=== PATIENT | male | born 1940 | race Caucasian/White ===

== ENCOUNTER → 2017-12-16 | Outpatient (CLI) | payer OTHER ==
[~2017-12-16] MED LIST: APIX2.5T PO; APIX5TAB PO; CARD120C4 PO; DILT30TA PO; HYDR-3288 PO; VITA1000 PO; VITA500T35 PO
== END ==
LOC: CPRE 11:32
PROVIDERS: ATTEND Orthopaedic Surgery Sports Medicine
DX: M17.12 Unilateral primary osteoarthritis, left knee (principal)

== ENCOUNTER 2017-12-26 06:42 | Observation (INO) | payer MEDICARE, OTHER ==
[~2017-12-26] VITALS: Ht 190.5 cm; Wt 93.3 kg
[~2017-12-26 06:42] MED LIST changes: -APIX2.5T PO; -CARD120C4 PO; -HYDR-3288 PO
[2017-12-26] MEDS ORDERED: APIX2.5T PO (06:57)
[2017-12-26] MEDS ORDERED: HYDR-3288 PO (06:57)
[2017-12-26] MEDS ORDERED: ACETAMINOPHEN/HYDROcodone 325 MG/7.5 MG TAB PO PRN ×2 (07:00)
[2017-12-26] MEDS ORDERED: BISACODYL 10 MG SUPP RECTAL PRN (07:00)
[2017-12-26] MEDS ORDERED: Post-op Orders (for Pharmacy) XX ONE (07:00)
[2017-12-26] MEDS ORDERED: MORPHINE SULFATE 4 MG/ML INJ IV PUSH PRN (07:00)
[2017-12-26] MEDS ORDERED: diphenhydrAMINE HCL 50 MG/ML VIAL IV PUSH PRN (07:00)
[2017-12-26] MEDS ORDERED: ONDANSETRON HCL 4 MG/2 ML VIAL IVP PRN (07:00)
[2017-12-26] MEDS ORDERED: CHLORHEXIDINE GLUCONATE 2 % 1 PACK (2 CLOTHS) TOPICAL PRN (07:15)
[2017-12-26] MEDS ORDERED: DEXAMETHASONE SOD PHOS 20 MG/5 ML VIAL IV SCH (07:15)
[2017-12-26] MEDS ORDERED: LACTATED RINGER'S 1000 ML IV PRN (07:15)
[2017-12-26] MEDS ORDERED: POVIDONE IODINE 7.5% SCRUB 118 ML BOTTLE TOPICAL SCH (07:15)
[2017-12-26] MEDS ORDERED: CHLORHEXIDINE GLUCONATE 4% SOLN 120 ML BTL TOPICAL SCH (07:15)
[2017-12-26] MEDS ORDERED: METOPROLOL TARTRATE 25 MG TAB PO PRN (07:15)
[2017-12-26] MEDS ORDERED: SODIUM CHLORID 0.9% 500 ML IV PRN (07:15)
[2017-12-26] MEDS ORDERED: VANCOMYCIN 1000 MG/NS 250 ML (for <70 kg) IV SCH ×2 (07:15)
[2017-12-26] MEDS ORDERED: POVIDONE IODINE 5% (ANTISEPSIS KIT) 4 APPLICATIONS EACH NARE PRN (07:15)
[2017-12-26] MEDS ORDERED: ceFAZolin 2 GM PREMIX 50 ML IV SCH (07:15)
[2017-12-26] MEDS ORDERED: CARD120C4 PO (07:58)
[2017-12-26] MEDS ORDERED: BUPIVACAINE LIPOSOME PF 1.3% 20 ML VIAL ONE (08:26)
[2017-12-26] MEDS ORDERED: MIDAZOLAM HCL 2 MG/2 ML VIAL ONE (08:28)
[2017-12-26] MEDS ORDERED: LIDOCAINE HCL 1% 20 ML VIAL ONE (08:55)
[2017-12-26] MEDS ORDERED: LIDOCAINE HCL 1% PF 30 ML VIAL ONE (08:56)
[2017-12-26] MEDS ORDERED: GENTAMICIN SULFATE 80 MG/2 ML VIAL ONE (08:59)
[2017-12-26] MEDS ORDERED: DILTIAZEM HCL 30 MG TAB PO SCH (09:00)
[2017-12-26] MEDS ORDERED: SODIUM CHLORIDE 0.9% IV SCH (10:00)
[2017-12-26] MEDS ORDERED: TRANEXAMIC ACID IV SCH (10:00)
[2017-12-26] MEDS ORDERED: TRANEXAMIC PERI-ARTICULAR 3,000 MG/NS 100 ML P-ARTICULR SCH ×2 (10:00)
[2017-12-26] MEDS: ROPIVACAINE PERI-ARTICULAR INJECTION. P-ARTICULR SCH ×10 (10:25→12:55)
[2017-12-26] MEDS ORDERED: ACETAMINOPHEN 1000 MG/100 ML 100 ML IV ONE (10:55)
[2017-12-26] MEDS ORDERED: LACTATED RINGER'S 1000 ML INJ 1,000 ML IV ONE (12:00)
[2017-12-26] MEDS ORDERED: GLYCOPYRROLATE 1 MG/5 ML SYRINGE IV PUSH ONE (12:00)
[2017-12-26] MEDS ORDERED: NEOSTIGMINE 5 MG/5 ML SYRINGE IV PUSH ONE (12:00)
[2017-12-26] MEDS ORDERED: LIDOCAINE HCL 1% PF 5 ML SYRINGE OTHER ONE (12:00)
[2017-12-26] MEDS ORDERED: ROCURONIUM INJ 50 MG/5 ML SYRINGE IV PUSH ONE (12:00)
[2017-12-26] MEDS ORDERED: KETOROLAC TROMETHAMINE 30 MG/ML (IVP) VIAL IV PUSH ONE (12:00)
[2017-12-26] MEDS ORDERED: DEXAMETHASONE SOD PHOS 4 MG/ML VIAL IV ONE (12:00)
[2017-12-26] MEDS ORDERED: ONDANSETRON HCL 4 MG/2 ML VIAL IV PUSH ONE (12:00)
[2017-12-26] MEDS ORDERED: PROPOFOL 200 MG/20 ML AMP IV ONE (12:00)
[2017-12-26] MEDS ORDERED: *MEPERIDINE 25 MG INJ VIAL PERIprocedural Use ONLY ONE (12:08)
--- NOTE | 2017-12-26 12:15 | MP ---
cc: BUNNY NAM M.D. DATE OF SURGERY 12/26/2017 PREOPERATIVE DIAGNOSIS Left knee osteoarthritis. POSTOPERATIVE DIAGNOSIS Left knee osteoarthritis. PROCEDURE Left total knee arthroplasty. SURGEON Dr. Bunny Nam CERT OCCUPATIONAL THERAPY ASST Theodore Patel PA-C ANESTHESIA General with a femoral nerve block. ESTIMATED BLOOD LOSS 100 cc. TOURNIQUET TIME 40 minutes at 250 mmHg COMPLICATIONS None. IMPLANTS USED DePuy Attune size 10 posterior stabilized femoral component, size 10 rotating platform tibial baseplate, size 5-mm polyethylene tibial insert and size 41 patella. JUSTIFICATION This patient is a 77-year-old male with a history of severe osteoarthritis involving the left knee. He has severe disabling pain with standing, walking, ambulation, weightbearing activities and severe pain at rest. He has failed greater than three months of nonoperative conservative treatment to include medication therapy, injections, ambulatory assistive aids, home exercise program, activity modification. The patient is not overweight. X-rays of the left knee reveal severe end-stage osteoarthritis and [id number] joint space narrowing, subchondral sclerosis, subchondral cysts, osteophyte formation and associated subluxation with deformity. The patient was counseled as to the risks, benefits and alternatives to a total knee arthroplasty. The risks discussed include but are not limited to anesthesia, bleeding, infection, damage to nerves, blood vessels, pain, stiffness, failure of the components, blood clots, pulmonary embolism and even . The patient's pain was severe and he favored the benefits over the risks. He did wish to proceed with surgery. PROCEDURE IN DETAIL Written consent was obtained. The patient was identified by name, taken to the operating room, placed supine on the operating table. General anesthesia was administered as well as 2 grams of IV Ancef and 1 gram of IV vancomycin. A well-padded tourniquet was placed on the left thigh, the left lower extremity prepped and draped using isopropyl alcohol, Hibiclens solution and Chloraprep solution. After a time-out was performed, an Esmarch bandage was used to exsanguinate the left lower extremity and the tourniquet inflated to 250 mmHg. A longitudinal incision was made over the anterior aspect of the left knee. A medial parapatellar arthrotomy incision was performed. The patella was everted. A patellar resection guide was used to resect 9 mm of patella. The size 41-mm guide was placed and three drill holes were placed in the patella. The patella 41-mm trial fit well. Attention was turned to the femur where an intramedullary guide angelo was placed and the distal femoral guide was set for removal of 11 mm of distal femur. An oscillating saw was used to perform the distal femoral cut. The cut was performed 5-degres off the anatomic valgus axis alignment. An additional 2 mm of distal femur was then resected due to the patient's severe flexion contracture. Attention was turned to the tibia where an extramedullary tibial guide was set to remove 6 mm off the lowest portion of the medial tibial plateau. The tibial guide was pinned in place. The tibia cut was performed. The 5-mm spacer block showed full extension. Attention was turned back to the femur where the AP sizing block measured a size 10. The anterior reference 3-degree external rotation guide was used to pin a size [address] The anterior and posterior chamfer cuts were performed. A size 10 PCL box guide was pinned in place and the PCL was boxed out with an oscillating saw. The medial and lateral meniscus remnants were removed as well as bone and soft tissue debris from the posterior portion of the knee. A size 10 tibial baseplate was pinned in place and the tibia was drilled and punched, trial components were evaluated and final components cemented in place. With the current components the leg could achieved full extension to 0 degrees and flexion to 140 with no evidence of tibial lift-off. Varus-valgus balance appeared appropriate and symmetric and the patella was noted to track centrally. The tourniquet was deflated, Bovie cautery was used for hemostasis. The surgical wound was thoroughly irrigated with sterile saline pulse lavage antibiotic impregnated solution. The arthrotomy incision was closed with #1 Vicryl suture, the subcutaneous layer with 2-0 Vicryl suture. The skin was closed with Dermabond and sterile dressing applied. The patient tolerated the procedure well with no intraoperative complications noted. Theodore Patel, physician actuarial assistant certified, was present during the entire procedure to include patient positioning and the procedure itself. The medical necessity of the physician actuarial assistant was indicated in this case due to the complexity of the procedure. He assisted with appropriate manipulation of the leg and also retraction of muscle, tendon, bone and neurovascular structures. He assisted with preparation of bone and also implantation of the prosthetic replacement. MD GILES Martin/ANDREA /11:31 AM /11:52 AM
[2017-12-26] MEDS: SODIUM CHLOR 0.9% 1000 ML INJ 1,000 ML IV SCH ×2 (12:30→15:06)
[2017-12-26] MEDS ORDERED: DO NOT ADM ANY ANTICOAGULANT DRUGS PRN (12:30)
--- NOTE | 2017-12-26 12:47 | RADRPT ---
EXAM DATE/TIME: 12/26/2017 12:23 [facility] COMPARISON: No previous studies available for comparison. INDICATIONS : Post-op left knee. MEDICAL HISTORY : None. SURGICAL HISTORY : Total knee replacement, left. ENCOUNTER: Initial ACUITY: 1 day PAIN SCORE: 0/10 LOCATION: Left Knee FINDINGS: AP and lateral views of the knee following arthroplasty reveals a prosthesis in anatomic alignment. F racture is not appreciated. CONCLUSION: Status post total knee arthroplasty. Arsh Escamilla MD FACR on December 26, 2017 at 12:43 Board Certified Radiologist. This report was verified electronically.
--- NOTE | 2017-12-26 13:16 | PD.CONS ---
HPI Service [facility] Consult Requested By Reason for Consult medical management. Primary Care Physician Non-Staff Diagnoses: History of Present Illness patient is a 77 y/o male with history of atrial fibrillation, prostate cancer and osteoarthritis who underwent left total knee arthroplasty today. at the time of my evaluation he was resting comfortably with no distress. pain is minimal. he denies any chest pain, sob or dizziness. Review of Systems Constitutional: DENIES: Fever, Weight loss, Chills, Night Sweats Eyes: DENIES: Blurred vision, Diplopia, Vision loss, Double Vision Ears, nose, mouth, throat: DENIES: Tinnitus, Vertigo, Throat pain, Epistaxis Respiratory: DENIES: Apneas, Cough, Snoring, Wheezing, Hemoptysis, Sputum production, Shortness of breath Cardiovascular: DENIES: Chest pain, Palpitations, Syncope, Dyspnea on Exertion , PND, Lower Extremity Edema, Orthopnea, Claudication Gastrointestinal: DENIES: Abdominal pain, Black stools, Bloody stools, Constipation, Diarrhea, Nausea, Vomiting, Difficulty Swallowing, Anorexia Genitourinary: DENIES: Urinary frequency, Urgency, Hematuria, Dysuria Musculoskeletal: COMPLAINS OF: Joint pain (left knee.), DENIES: Muscle aches, Stiffness, Joint Swelling Integumentary: DENIES: Rash Neurologic: DENIES: Abnormal gait, Headache, Localized weakness, Paresthesias, Seizures, Speech Problems, Tremor, Poor Balance Psychiatric: DENIES: Anxiety, Confusion, Mood changes, Depression, Hallucinations, Agitation, Suicidal Ideation, Homicidal Ideation, Delusions Past Family Social History Allergies: Coded Allergies: simvastatin (Verified Allergy, Severe, ALL STATINS, 12/26/17) SEVERE MUSCLE PAIN AND WEAKNESS Past Medical History prostate cancer/osteoarthritis/atrial fibrillation. Past Surgical History prostate surgery. Reported Medications diltiazem/ eliquis. Active Ordered Medications Inpatient Medications Acetaminophen/ Hydrocodone Bitart ([place] 7.5-325 Mg) 2 tab Q4H PRN PO PAIN SCALE 5 TO 10; Start 12/26/17 at 07:00 Apixaban (Eliquis) 2.5 mg ONCE ONCE PO ; Start 12/27/17 at 11:30; Stop 12/27/17 at 11:31 Bisacodyl (Dulcolax Supp) 10 mg DAILY PRN RECTAL CONSTIPATION; Start 12/26/17 at 07:00 Cefazolin Sodium 1000 mg/Sodium Chloride 100 ml @ 200 mls/hr Q6H IV Last administered on 12/26/17at 13:00; Start 12/26/17 at 14:00; Stop 12/27/17 at 02:29 Cefazolin Sodium/ Dextrose 50 ml @ 100 mls/hr ROUGHER MACHINE OPERATOR IV Last administered on 12/26/17at 09:32; Start 12/26/17 at 07:15; Stop 12/29/17 at 07:14 Chlorhexidine Gluconate (Chlorhexidine 2% Cloth) 3 pack ROUGHER MACHINE OPERATOR PRN TOPICAL SEE LABEL COMMENTS Last administered on 12/26/17at 08:00; Start 12/26/17 at 07:15; Stop 12/29/17 at 07:14 Chlorhexidine Gluconate (Hibiclens 4% Top Soln) 1 applic ONCE TOPICAL ; Start at 07:15; Stop 12/29/17 at 07:14 Dexamethasone Sodium Phosphate (Decadron Inj) 10 mg ROUGHER MACHINE OPERATOR IV Last administered on 12/26/17at 08:30; Start 12/26/17 at 07:15; Stop 12/26/17 at 18:00 Diltiazem HCl (Cardizem) 30 mg DAILY PO ; Start 12/26/17 at 09:00 Diphenhydramine HCl (Benadryl Inj) 25 mg Q6H PRN IV PUSH ITCHING; Start at 07:00 Docusate Sodium (Colace) 100 mg BID PO ; Start 12/27/17 at 21:00 Lactated Ringer's 1,000 ml @ 30 mls/hr Q24H PRN IV SEE LABEL COMMENTS Last administered on 12/26/17at 08:30; Start 12/26/17 at 07:15; Stop 12/29/17 at 07:14 Metoprolol Tartrate (Lopressor) 25 mg ROUGHER MACHINE OPERATOR PRN PO SEE LABEL COMMENTS; Start 12/26/17 at 07:15; Stop 12/29/17 at 07:14 Miscellaneous Information ALL NURSING DEPARTME... UNSCH PRN .XX SEE LABEL COMMENTS; Start 12/26/17 at 12:30; Stop 12/27/17 at 12:29 Miscellaneous Information (Post-op Orders (for Pharmacy)) STAT ONCE XX ; Start 12/26/17 at 07:00; Stop 12/26/17 at 12:02; Status DC Morphine Sulfate (Morphine Inj) 3 mg Q3H PRN IV PUSH Pain >7 when off NEGATIVE RETOUCHER; Start 12/26/17 at 07:00 Multivitamins/ Minerals Therapeutic (Theragran M Tab) 1 tab BID PO ; Start at 21:00; Stop 02/25/18 at 20:59 Ondansetron HCl (Zofran Inj) 4 mg Q6H PRN IVP NAUSEA OR VOMITING; Start at 07:00 Povidone Iodine (Betadine 5% Antisepsis Kit) 1 applic ROUGHER MACHINE OPERATOR PRN EACH NARE SEE LABEL COMMENTS Last administered on 12/26/17at 08:15; Start 12/26/17 at 07:15; Stop 12/29/17 at 07:14 Povidone Iodine (Betadine 7.5% Scrub) 1 applic ONCE TOPICAL Last administered on 12/26/17at 08:15; Start 12/26/17 at 07:15; Stop 12/29/17 at 07:14 Ropivacaine 24.63 ml/Ketorolac Tromethamine 30 mg/Epinephrine HCl 0.5 mg/ Clonidine 80 mcg/ Sodium Chloride 100 ml @ 200 mls/hr ONCE P-ARTICULR Last administered on 12/26/17at 10:25; Start 12/26/17 at 10:00; Stop 12/26/17 at 16:00 Sodium Chloride 500 ml @ 30 mls/hr [id number] PRN IV SEE LABEL COMMENTS; Start 12/26/17 at 07:15; Stop 12/29/17 at 07:14 Tranexamic Acid 1399.5 mg/Sodium Chloride 113.995 ml @ 200 mls/ hr ONCE IV Last administered on 12/26/17at 10:00; Start 12/26/17 at 10:00; Stop 12/26/17 at 16: 00 Tranexamic Acid 3000 mg/Sodium Chloride 130 ml @ 260 mls/hr ONCE P-ARTICULR Last administered on 12/26/17at 10:25; Start 12/26/17 at 10:00; Stop 12/26/17 at 16: 00 Vancomycin HCl 1000 mg/Sodium Chloride 250 ml @ 250 mls/hr ROUGHER MACHINE OPERATOR IV Last administered on 2/5/18at 09:32; Start 12/26/17 at 07:15; Stop 12/29/17 at 07:14 Zolpidem Tartrate (Ambien) 5 mg HS PRN PO SLEEP; Start 12/26/17 at 21:00 Family History not relevant to this consult. Social History quit smoking years ago. Physical Exam Vital Signs Vital Signs Date Time Temp Pulse Resp B/P (MAP) Pulse Ox O2 Delivery O2 Flow Rate FiO2 12/26/17 12:05 97.5 84 16 123/60 (81) 97 12/26/17 08:13 97.9 63 16 143/88 (106) 99 Physical Exam GENERAL: This is a well-nourished, well-developed patient, in no apparent distress. SKIN: No rashes, ecchymoses or lesions. Cool and dry. HEAD: Atraumatic. Normocephalic. No temporal or scalp tenderness. EYES: Pupils equal round and reactive. Extraocular motions intact. No scleral icterus. No injection or drainage. ENT: Nose without bleeding, purulent drainage or septal hematoma. Throat without erythema, tonsillar hypertrophy or exudate. Uvula midline. Airway patent. NECK: Trachea midline. No JVD or lymphadenopathy. Supple, nontender, no meningeal signs. CARDIOVASCULAR: Regular rate and rhythm without murmurs, gallops, or rubs. RESPIRATORY: Clear to auscultation. Breath sounds equal bilaterally. No wheezes , rales, or rhonchi. GASTROINTESTINAL: Abdomen soft, non-tender, nondistended. No hepato-splenomegaly , or palpable masses. No guarding. MUSCULOSKELETAL: left knee/leg covered with clean dressing. NEUROLOGICAL: Awake and alert. Cranial nerves II through XII intact. Motor and sensory grossly within normal limits. Five out of 5 muscle strength in all muscle groups. Normal speech. Imaging Last Impressions Knee X-Ray 12/26/17 0654 Signed Impressions: Service Date/Time: Tuesday, December 26, 2017 12:23 - CONCLUSION: Status post total knee arthroplasty. rAsh Escamilla MD FACR Assessment and Plan Assessment and Plan A/P -osteoarthritis- s/p left total knee arthroplasty continue with pain control and PT- management per ortho. -a-fib; resume cardizem and eliquis -DVT prophylaxis; on eliquis thank you for the consult. Discussed Condition With the patient and RN. Joni Esquivel MD Dec 26, 2017 13:16
[2017-12-26 14:00] VITALS: BP 131/75; PULSE 71; RESP 18; TEMP 96.6; O2SAT 97
[2017-12-26 16:42] VITALS: BP 118/69; PULSE 88; RESP 17; TEMP 96.6; O2SAT 96
[2017-12-26 19:39] VITALS: BP 132/91; PULSE 125; RESP 18; TEMP 97.7; O2SAT 96
[2017-12-26] MEDS ORDERED: ZOLPIDEM TARTRATE 5 MG TAB PO PRN (21:00)
[2017-12-26 23:57] VITALS: BP 128/95; PULSE 117; RESP 18; TEMP 97.9; O2SAT 97
[2017-12-27] MEDS ORDERED: DILTIAZEM HCL 30 MG TAB PO ONE (00:30)
[2017-12-27] MEDS: SODIUM CHLOR 0.9% 1000 ML INJ 1,000 ML IV SCH ×2 (00:51→00:52)
[2017-12-27] MEDS ORDERED: DILTIAZEM HCL 25 MG/5 ML VIAL IV ONE (03:15)
[2017-12-27 04:50] VITALS: BP 129/80; PULSE 86; RESP 18; TEMP 97.9; O2SAT 95
[2017-12-27 07:56] LABS: HEMATOCRIT 31.2 % (39.0-51.0); HEMOGLOBIN 10.8 GM/DL (13.0-17.0); MEAN CELL VOLUME 98.6 FL (80.0-100.0); MEAN CORPUSCULAR HEMOGLOBIN 34.2 PG (27.0-34.0); MEAN CORPUSCULAR HGB CONC 34.7 % (32.0-36.0); PLATELET COUNT 231 TH/MM3 (150-450); RED BLOOD COUNT 3.17 MIL/MM3 (4.50-5.90); RED CELL DISTRIBUTION WIDTH 12.6 % (11.6-17.2); WHITE BLOOD COUNT 17.4 TH/MM3 (4.0-11.0)
[2017-12-27 08:00] VITALS: BP 131/75; PULSE 81; PULSE 84; RESP 16; TEMP 97.7; O2SAT 97
[2017-12-27 08:15] LABS: BICARBONATE 22.9 MEQ/L (21.0-32.0); CREATININE 1.01 MG/DL (0.60-1.30)
--- NOTE | 2017-12-27 08:36 | PD.ORT.PN ---
Subjective Post Op Day #: 1 Subjective Remarks minimal pain. doing well. Objective Vitals Vital Signs Date Time Temp Pulse Resp B/P (MAP) Pulse Ox O2 Delivery O2 Flow Rate FiO2 12/27/17 08:00 97.7 84 16 131/75 (93) 97 12/27/17 04:50 97.9 86 18 129/80 (96) 95 12/26/17 23:57 97.9 117 18 128/95 (106) 97 12/26/17 19:39 97.7 125 18 132/91 (105) 96 12/26/17 16:42 96.6 88 17 118/69 (85) 96 12/26/17 14:00 96.6 71 18 131/75 (93) 97 12/26/17 13:15 70 16 131/66 (87) 97 Room Air 12/26/17 13:00 62 16 124/68 (86) 97 Room Air 12/26/17 12:45 64 16 97/52 (67) 97 Room Air 12/26/17 12:30 64 16 100/53 (69) 97 Room Air 12/26/17 12:15 74 16 120/60 (80) 97 Room Air 12/26/17 12:05 97.5 84 16 123/60 (81) 97 I/O 12/26/17 12/26/17 12/26/17 12/27/17 12/27/17 12/27/17 07:00 15:00 23:00 07:00 15:00 23:00 Intake Total 1800 ml 1080 ml 340 ml Output Total 200 ml 750 ml 4 ml Balance 1600 ml 330 ml 336 ml Intake Oral 980 ml 240 ml IV Total 1800 ml 100 ml 100 ml Output Urine Total 100 ml 750 ml 4 ml Estimated Blood Loss 100 ml # Voids 4 # Bowel Movements 0 0 Result Diagram: 12/27/17 0622 12/27/17 0622 Objective Remarks in chair, nad incision no erythema, no drainage neg homans nvi Assessment & Plan Ortho Post Op Day #: 1 Problem List: Assessment and Plan s/p L TKA wbat daily dressing changes resume Eliquis d/c planning home with [facility] and pt - cleared today if does well in PT f/up dr. fountain 2 weeks Allen Patel Dec 27, 2017 08:36
--- NOTE | 2017-12-27 08:38 | HHI.FF ---
Face to Face Verification Diagnosis: (1) Primary localized osteoarthrosis, lower leg Physical Therapy Gait training, Safety evaluation, Transfer training, bed to chair Knee: Total knee, Protocol: Left, Full weight bearing Left LE Weight Bearing: WB as tolerated Nursing Nursing: Dressing changes Dressing Changes: Daily dressing change I have seen patient Jarvis Ann on 12/27/17. My clinical findings support the need for the requested home health care services because: Limited ability to care for self High risk of falls I certify that my clinical findings support that this patient is homebound because: Post-op weakness Unsteady gait/balance Allen Patel Dec 27, 2017 08:38
--- NOTE | 2017-12-27 08:38 | HHI.DCPOC ---
Discharge Care Plan Diagnosis: (1) Primary localized osteoarthrosis, lower leg Your Health Problems Are: Difficulty with ADL Goals to Promote Your Health * To prevent worsening of your condition and complications * To maintain your health at the optimal level Directions to Meet Your Goals Take your medications as prescribed Follow your dietary instruction Follow activity as directed Keep your appointments as scheduled Take your immunizations and boosters as scheduled If your symptoms worsen call your PCP, if no PCP go to Urgent Care Center or Emergency Room Smoking is Dangerous to Your Health. Avoid second hand smoke Call the 24-hour hour crisis hotline for domestic abuse at Allen Patel Dec 27, 2017 08:38
[2017-12-27] MEDS ORDERED: DILTIAZEM-CD 120 MG CAP ER PO SCH (09:00)
[2017-12-27] MEDS ORDERED: APIXABAN 2.5 MG TABLET PO ONE (11:30)
--- NOTE | 2017-12-27 11:30 | HHI.PR ---
Subjective Remarks sitting on the chair with no distress. pain is fairly controlled. no new complaints. Objective Vitals Vital Signs Date Time Temp Pulse Resp B/P (MAP) Pulse Ox O2 Delivery O2 Flow Rate FiO2 12/27/17 08:00 97.7 84 16 131/75 (93) 97 12/27/17 04:50 97.9 86 18 129/80 (96) 95 12/26/17 23:57 97.9 117 18 128/95 (106) 97 12/26/17 19:39 97.7 125 18 132/91 (105) 96 12/26/17 16:42 96.6 88 17 118/69 (85) 96 12/26/17 14:00 96.6 71 18 131/75 (93) 97 12/26/17 13:15 70 16 131/66 (87) 97 Room Air 12/26/17 13:00 62 16 124/68 (86) 97 Room Air 12/26/17 12:45 64 16 97/52 (67) 97 Room Air 12/26/17 12:30 64 16 100/53 (69) 97 Room Air 12/26/17 12:15 74 16 120/60 (80) 97 Room Air 12/26/17 12:05 97.5 84 16 123/60 (81) 97 I/O 12/26/17 12/26/17 12/26/17 12/27/17 12/27/17 12/27/17 07:00 15:00 23:00 07:00 15:00 23:00 Intake Total 1800 ml 1080 ml 340 ml Output Total 200 ml 750 ml 4 ml Balance 1600 ml 330 ml 336 ml Intake Oral 980 ml 240 ml IV Total 1800 ml 100 ml 100 ml Output Urine Total 100 ml 750 ml 4 ml Estimated Blood Loss 100 ml # Voids 4 # Bowel Movements 0 0 Result Diagram: 12/27/17 0622 12/27/17 0622 Imaging Last Impressions Knee X-Ray 12/26/17 0654 Signed Impressions: Service Date/Time: Tuesday, December 26, 2017 12:23 - CONCLUSION: Status post total knee arthroplasty. Arsh Escamilla MD FACR Objective Remarks GENERAL: This is a well-nourished, well-developed patient, in no apparent distress. CARDIOVASCULAR: Regular rate and regular rhythm without murmurs, gallops, or rubs. RESPIRATORY: Clear to auscultation. Breath sounds equal bilaterally. No wheezes , rales, or rhonchi. GASTROINTESTINAL: Abdomen soft, non-tender, nondistended. Normal, active bowel sounds MUSCULOSKELETAL: left knee covered with clean dressing. NEURO: Alert & Oriented x4 to person, place, time, situation. Moves all ext x4 Medications and IVs Inpatient Medications Acetaminophen/ Hydrocodone Bitart ([place] 7.5-325 Mg) 2 tab Q4H PRN PO PAIN SCALE 5 TO 10; Start 12/26/17 at 07:00 Apixaban (Eliquis) 2.5 mg ONCE ONCE PO ; Start 12/27/17 at 11:30; Stop 12/27/17 at 11:31 Bisacodyl (Dulcolax Supp) 10 mg DAILY PRN RECTAL CONSTIPATION; Start 12/26/17 at 07:00 Cefazolin Sodium 1000 mg/Sodium Chloride 100 ml @ 200 mls/hr Q6H IV Last administered on 12/27/17at 02:03; Start 12/26/17 at 14:00; Stop 12/27/17 at 02:29; Status DC Cefazolin Sodium/ Dextrose 50 ml @ 100 mls/hr PLATFORM CONSULTANT IV Last administered on 12/26/17at 09:32; Start 12/26/17 at 07:15; Stop 12/29/17 at 07:14 Chlorhexidine Gluconate (Chlorhexidine 2% Cloth) 3 pack PLATFORM CONSULTANT PRN TOPICAL SEE LABEL COMMENTS Last administered on 12/26/17at 08:00; Start 12/26/17 at 07:15; Stop 12/29/17 at 07:14 Chlorhexidine Gluconate (Hibiclens 4% Top Soln) 1 applic ONCE TOPICAL ; Start at 07:15; Stop 12/29/17 at 07:14 Dexamethasone Sodium Phosphate (Decadron Inj) 10 mg PLATFORM CONSULTANT IV Last administered on 12/26/17at 08:30; Start 12/26/17 at 07:15; Stop 12/26/17 at 18:00; Status DC Diltiazem HCl (Cardizem Cd) 120 mg DAILY PO Last administered on 12/27/17at 09:00 ; Start 12/27/17 at 09:00 Diltiazem HCl (Cardizem Inj) 15 mg ONCE ONCE IV Last administered on 12/27/17at 03:36; Start 12/27/17 at 03:15; Stop 12/27/17 at 03:16; Status DC Diltiazem HCl (Cardizem) 30 mg ONCE ONCE PO Last administered on 12/27/17at 00: 26; Start 12/27/17 at 00:30; Stop 12/27/17 at 00:31; Status DC Diphenhydramine HCl (Benadryl Inj) 25 mg Q6H PRN IV PUSH ITCHING; Start at 07:00 Docusate Sodium (Colace) 100 mg BID PO ; Start 12/27/17 at 21:00 Lactated Ringer's 1,000 ml @ 30 mls/hr Q24H PRN IV SEE LABEL COMMENTS Last administered on 12/26/17at 08:30; Start 12/26/17 at 07:15; Stop 12/29/17 at 07:14 Metoprolol Tartrate (Lopressor) 25 mg PLATFORM CONSULTANT PRN PO SEE LABEL COMMENTS; Start 12/26/17 at 07:15; Stop 12/29/17 at 07:14 Miscellaneous Information ALL NURSING DEPARTME... UNSCH PRN .XX SEE LABEL COMMENTS; Start 12/26/17 at 12:30; Stop 12/27/17 at 12:29 Miscellaneous Information (Post-op Orders (for Pharmacy)) STAT ONCE XX ; Start 12/26/17 at 07:00; Stop 12/26/17 at 12:02; Status DC Morphine Sulfate (Morphine Inj) 3 mg Q3H PRN IV PUSH Pain >7 when off NURSE PRACTITIONER HOSPITALIST; Start 12/26/17 at 07:00 Multivitamins/ Minerals Therapeutic (Theragran M Tab) 1 tab BID PO ; Start at 21:00; Stop 02/25/18 at 20:59 Ondansetron HCl (Zofran Inj) 4 mg Q6H PRN IVP NAUSEA OR VOMITING; Start at 07:00 Povidone Iodine (Betadine 5% Antisepsis Kit) 1 applic PLATFORM CONSULTANT PRN EACH NARE SEE LABEL COMMENTS Last administered on 12/26/17at 08:15; Start 12/26/17 at 07:15; Stop 12/29/17 at 07:14 Povidone Iodine (Betadine 7.5% Scrub) 1 applic ONCE TOPICAL Last administered on 12/26/17at 08:15; Start 12/26/17 at 07:15; Stop 12/29/17 at 07:14 Ropivacaine 24.63 ml/Ketorolac Tromethamine 30 mg/Epinephrine HCl 0.5 mg/ Clonidine 80 mcg/ Sodium Chloride 100 ml @ 200 mls/hr ONCE P-ARTICULR Last administered on 12/26/17at 10:25; Start 12/26/17 at 10:00; Stop 12/26/17 at 16:00 Sodium Chloride 500 ml @ 30 mls/hr [id number] PRN IV SEE LABEL COMMENTS; Start 12/26/17 at 07:15; Stop 12/29/17 at 07:14 Tranexamic Acid 1399.5 mg/Sodium Chloride 113.995 ml @ 200 mls/ hr ONCE IV Last administered on 12/26/17at 10:00; Start 12/26/17 at 10:00; Stop 12/26/17 at 16: 00; Status DC Tranexamic Acid 3000 mg/Sodium Chloride 130 ml @ 260 mls/hr ONCE P-ARTICULR Last administered on 12/26/17at 10:25; Start 12/26/17 at 10:00; Stop 12/26/17 at 16: 00; Status DC Vancomycin HCl 1000 mg/Sodium Chloride 250 ml @ 250 mls/hr PLATFORM CONSULTANT IV Last administered on 12/26/17at 09:32; Start 12/26/17 at 07:15; Stop 12/29/17 at 07:14 Zolpidem Tartrate (Ambien) 5 mg HS PRN PO SLEEP; Start 12/26/17 at 21:00 A/P Assessment and Plan -osteoarthritis- s/p left total knee arthroplasty continue with pain control and PT- management per ortho. -leukocytosis- likely reactive- no fever. -[id number]- will monitor. -a-fib; resumed cardizem and eliquis -DVT prophylaxis; on eliquis Discharge Planning per ortho. Joni Esquivel MD Dec 27, 2017 11:30
[2017-12-27 12:00] VITALS: BP 137/71; PULSE 81; PULSE 85; RESP 18; TEMP 97.5; O2SAT 96
[2017-12-27] MEDS ORDERED: DOCUSATE SODIUM 100 MG CAP PO SCH (21:00)
[2017-12-27] MEDS ORDERED: MULTIVITAMINS/MINERALS THERAPEUTIC TAB PO SCH (21:00)
--- NOTE | 2018-01-02 11:55 | MD ---
cc: BUNNY CARMICHAEL M.D. ADMISSION DATE: 12/26/2017 DISCHARGE DATE: 12/27/2017 ADMITTING DIAGNOSIS Severe degenerative osteoarthritis, left knee. DISCHARGE DIAGNOSIS Severe degenerative osteoarthritis, left knee. HISTORY OF PRESENT ILLNESS Mr. Ann is a 77-year-old male who presented to the [facility] for evaluation by Dr. Bunny Carmichael regarding his severe and progressive left knee pain. The patient states the pain is a severe aching sensation aggravated by weightbearing activities. He has no alleviating factors at this point in time, although in the past he has tried medications, bracing, physical therapy, home exercises and even corticosteroid injection in the left knee without relief of symptoms. He does have x-ray evidence of severe degenerative osteoarthritis of the left knee. While in the office the patient was counseled on his diagnosis and treatment options. Risks, benefits and indications were all discussed. The patient did elect to proceed with surgical intervention to include a left total knee arthroplasty. Date of surgery 12/26/2017, left total knee arthroplasty. POST-OP After surgery the patient was admitted to [facility] where he received appropriate medical management, pain control, DVT prophylaxis, as well as physical therapy. DISCHARGE Once being discharged from the hospital the patient is cleared to go home where he will receive home health care and home physical therapy. He is in stable condition. He may weight bear as tolerated. He is to receive daily dressing changes and has been instructed on wound care management. He has been provided prescriptions for pain control and will resume taking Eliquis for DVT prophylaxis medication. He has been provided a follow-up appointment in approximately 2 weeks from the date of surgery. He has asked appropriate questions which have been answered. The patient has been discharged. Dictated by: Bunny Patel PA-C MD GILES Martin/CINDI /7:50 AM /11:46 AM
== END 2017-12-27 14:23 | disposition home health service (06) ==
LOC: HSDC 06:42 → HSDI 06:55 → INTOOBSV 06:55 → EDUNIT# 10:00 → N06B 13:51
PROVIDERS: ADMIT Orthopaedic Surgery Sports Medicine; ATTEND Orthopaedic Surgery Sports Medicine
DX: M17.12 Unilateral primary osteoarthritis, left knee (principal); I48.91 Unspecified atrial fibrillation; D72.829 Elevated white blood cell count, unspecified; D64.9 Anemia, unspecified; Z85.46 Personal history of malignant neoplasm of prostate; Z79.01 Long term (current) use of anticoagulants
CPT/HCPCS: 01400; 27447; 64450; 73560; 80048; 85027; 86850; 86900; 86901; 94150; 96365; 96375; 97110; 97116; 97150; 97162; 97166; C1776; C9290; G0378; G8987; G8988; J0131; J0690; J0735; J1100; J1580; J1885; J2175; J2250; J2405; J2710; J2795; J3010; J3370; J7030; J7050; J7120; L1830